=== PATIENT | female | born 1980 | race Caucasian/White ===

== ENCOUNTER 2022-08-23 08:19 | Day surgery (SDC) | payer BC, OTHER ==
[2022-08-17 12:29] LABS: BASOPHILS % (AUTO) 0.5 % (0-1); EOSINOPHILS % (AUTO) 0.8 % (0-6); LYMPHOCYTES # (AUTO) 1.5 X10'3 (1.1-4.8); MEAN CORPUSCULAR HEMOGLOBIN 31.1 PG (27.0-31.0); MEAN CORPUSCULAR HGB CONC 32.9 g/dL (33.0-36.5); MEAN CORPUSCULAR VOLUME 94.5 FL (78-98); MEAN PLATELET VOLUME 9.2 FL (7.4-10.4); MONOCYTES # (AUTO) 0.5 X10'3 (0-0.9); NEUTROPHILS # (AUTO) 3.3 X10'3 (1.8-7.7); NEUTROPHILS % (AUTO) 61.7 % (42-75); PRE OP HEMATOCRIT 42.3 % (35.0-45.0); PRE OP HEMOGLOBIN 13.9 g/dL (12.0-16.0); PRE OP PLATELET COUNT 208 X10'3 (140-440); RED BLOOD COUNT 4.47 X10'6 (4.20-5.60); RED CELL DISTRIBUTION WIDTH 13.1 % (11.5-14.5)
[2022-08-17 12:31] LABS: HCG SERUM QL NEGATIVE
[2022-08-17 12:39] LABS: CLARITY,URINE CLEAR (Clear); COLOR,URINE YELLOW (Yellow); GLUCOSE, URINE NEGATIVE (Neg); KETONES,URINE NEGATIVE (Neg); LEUKOCYTE ESTERASE ,URINE NEGATIVE (Neg); NITRITES, URINE NEGATIVE (Neg); OCCULT BLOOD,URINE NEGATIVE (Neg); PH,URINE 7.5 (4.8-8.0); PROTEIN,URINE NEGATIVE (Neg); UROBILINOGEN,URINE 0.2 E.U/dL (0.2-1.0)
[2022-08-17 12:39] LABS: ALBUMIN 4.3 G/DL (3.4-5.0); ALBUMIN/GLOBULIN RATIO 1.4 (1.1-1.5); ALKALINE PHOSPHATASE 41 IU/L (46-116); BLOOD UREA NITROGEN 20 MG/DL (7-18); BUN/CREATININE RATIO 26.7 (6.6-38.0); CALCIUM 8.6 MG/DL (8.5-10.1); CHLORIDE 104 MMOL/L (99-107); CREATININE 0.75 MG/DL (0.40-0.90); PRE OP ALT 43 U/L (30-65); PRE OP ANION GAP 7 (8-16); PRE OP AST 32 U/L (10-37); PRE OP BILIRUB, TOTAL 0.9 MG/DL (0.0-1.0); PRE OP GLUCOSE 89 MG/DL (70-104); PRE OP POTASSIUM 4.2 MMOL/L (3.4-5.1); PRE OP SODIUM 139 MMOL/L (135-145); TOTAL CARBON DIOXIDE 27.8 MMOL/L (24-32); TOTAL PROTEIN 7.4 G/DL (6.4-8.2); eGFR 85 ML/MIN
[2022-08-17 12:49] LABS: UA COLLECTION TYPE CLN CATCH MIDSTREAM
[~2022-08-23] VITALS: Ht 154.9 cm; Wt 55.0 kg
[2022-08-23] VITALS (25 sets, daily range): BP systolic 106–125; BP diastolic 65–77
[~2022-08-23 08:19] MED LIST: BUPIVAcaine 0.5% inj/PF 60 ML ONE; NO HOME MEDS; ceFOXitin 2GM-NS 100mL ADDvant 100 ML IV ONE; famotidine 20mg tablet PO ONE; neomy sulf/polymyxin B sulf. GU irrigation 1ml amp IR ONE; ringers solution, lacted 1,000 ML IV SCH; vasoPRESSIN 20 units/ml inj. ONE
[2022-08-23] MEDS ORDERED: dexamethasone sod phosphate 10mg/ml inj ONE (10:21)
[2022-08-23] MEDS ORDERED: sevoflurane 250ml liquid IH ONE (10:21)
[2022-08-23] MEDS ORDERED: rocuronium 10mg/ml inj IV ONE ×2 (10:21→10:43)
[2022-08-23] MEDS ORDERED: neostigmine methylsulfate 1 MG/ML 10ml vial ONE (10:21)
[2022-08-23] MEDS ORDERED: fentaNYL/PF 50MCG/1 ML 2ML syringe ONE (10:31)
[2022-08-23] MEDS ORDERED: midazolam 1 mg/ML 2ml injection ONE (10:31)
[2022-08-23] MEDS ORDERED: LIDOcaine 1%/PF 5ML 10 MG/ML VIAL ONE (10:43)
[2022-08-23] MEDS ORDERED: propofol inj 20 ML IV ONE (10:43)
[2022-08-23] MEDS ORDERED: glycopyrrolate 0.2mg/ml inj ONE (10:44)
[2022-08-23] MEDS ORDERED: ondansetron/PF 4mg/2ml inj ONE (10:45)
[2022-08-23] MEDS ORDERED: morphine 2 MG/ML inj. syringe IV PRN (11:05)
[2022-08-23] MEDS ORDERED: labetalol 20mg/4ml (5mg/ml) syringe IV PRN (11:05)
[2022-08-23] MEDS ORDERED: fentaNYL/PF 50MCG/1 ML 2ML syringe IV PRN ×2 (11:05)
[2022-08-23] MEDS ORDERED: ringers solution, lacted 1,000 ML IV SCH (11:05)
[2022-08-23] MEDS ORDERED: ondansetron/PF 4mg/2ml inj IV PRN ×2 (11:05→12:10)
[2022-08-23] MEDS ORDERED: hydrALAZINE 20mg/ml inj. IV PRN (11:05)
[2022-08-23] MEDS ORDERED: morphine 4 MG/ML inj SYRINge IV PRN (11:05)
[2022-08-23] MEDS ORDERED: BUPIVAcaine 0.5% inj/PF 30 ml vial IJ ONE (11:15)
[2022-08-23] MEDS ORDERED: ketorolac trometh. 30mg/ml inj. ONE (12:08)
[2022-08-23] MEDS ORDERED: dextrose 5%-lactated ringers 1,000 ML IV SCH (12:10)
[2022-08-23] MEDS ORDERED: HYDROcodone/acetaminophen 5mg/325mg tablet PO PRN ×2 (12:10)
--- NOTE | 2022-08-23 12:24 | NUR ---
Received from OR via HOSPITAL BED, accompanied by Anesthesiologist DR Garsia report given by Anesthesiolgist. PT PRESNTS WITH PIV 20G LEFT HAND, 3 LAP SITES ON ABD WITH DERMABOND, PT HAS FC AND MESHA PAD CDI. VSS. Addendum: 08/23/22 at 1238 by Yolie Rodriguez RN, RN Amended: Links added.
--- NOTE | 2022-08-23 13:56 | NUR ---
HOOD CATHETER REMOVED.
[2022-08-23] MEDS ORDERED: ketorolac trometh. 30mg/ml inj. IM SCH (14:00)
--- NOTE | 2022-08-23 15:47 | NUR ---
PT BLADDER SCANNED WITH 173MLS IN BLADDER. Addendum: 08/23/22 at 1716 by Yolie Rodriguez RN RN Amended: Links added.
--- NOTE | 2022-08-23 15:50 | NUR ---
PT UP TO THE BATHROOM WITH STEADY GAIT. PT URINATED IN TOILET ROOM 10. Addendum: 08/23/22 at 1716 by Yolie Rodriguez RN, RN Amended: Links added.
--- NOTE | 2022-08-23 16:00 | NUR ---
PT BLADDER SCANNED AFTER URINATION. TANNER SCAN READS 34 MLS IN BLADDER. Addendum: 08/23/22 at 1716 by Yolie Rodriguez RN, RN Amended: Links added.
--- NOTE | 2022-08-23 16:24 | NUR ---
I HAVE REVIEWED D/C INSTRUCTIONS WITH PATIENT AND THEY HAVE VERBALIZED UNDERSTANDING OF INSTRUCTIONS. PATIENT D/C HOME WITH ALL BELONGINGS AND FAMILY GAVE TRANSPORT Addendum: 08/23/22 at 1719 by Yolie Rodriguez RN, RN Amended: Links added.
== END 2022-08-23 16:24 | disposition home or self-care (01) ==
LOC: PAS 08:19
PROVIDERS: ATTEND Obstetrics & Gynecology Obstetrics
DX: D06.0 Carcinoma in situ of endocervix (principal); N73.6 Female pelvic peritoneal adhesions (postinfective); Z98.890 Other specified postprocedural states; Z79.899 Other long term (current) drug therapy; Z86.32 Personal history of gestational diabetes
CPT/HCPCS: 36415; 58552; 71046; 80053; 81003; 82948; 84703; 85025; 86885; 86900; 86901; 93005; J0694; J1100; J1885; J2250; J2405; J2704; J2710; J3010; J3490; J7030; J7120; S0020; Z7506; Z7508; Z7512; A4314; A4618; A7000